=== PATIENT | female | born 1995 | race Hispanic/Latino ===

== ENCOUNTER 2021-09-02 08:10 | Inpatient (IN) | payer SELFPAY ==
[2021-09-02] VITALS (17 sets, daily range): BP systolic 89–119; BP diastolic 58–75; PULSE 86–134; RESP 18; TEMP 36.2–37.1; O2SAT 98; BMI 28.0
[2021-09-02] MEDS: Lactated Ringers 1,000 ML 50 ML IV (08:35)
[2021-09-02 08:57] LABS: Absolute Lymphocyte Count 2.19 X10^3/uL (0.83-4.51); Absolute Neutrophil Count 4.6 X10^3/uL (2.0-7.7); Basophil# 0.03 X10^3/uL; Basophil% 0.4 % (0-1); Eosinophil# 0.12 X10^3/uL; Eosinophils% 1.6 % (0-5); Hematocrit 38.2 % (37-47); Hemoglobin 13.3 g/dL (12.0-15.0); Lymphocyte # 2.19 X10^3/ul (0.83-4.51); Mean Corp Hgb Conc 34.8 g/dL (32-36); Mean Corpuscular Hgb 30.3 pg (27.0-32.0); Mean Platelet Vol. 10.4 fl (6.2-12.0); Monocyte# 0.61 X10^3/uL; Monocyte% 8.1 % (0-10); NRBC Flagged by Analyzer 0 % (0-5); Neutrophil # 4.55 X10^3/uL (2.7-7.7); Neutrophil % 60.2 % (47-70); Platelet Count 227 K/mm3 (150-450); RBC Distribution Width CV 13.5 % (11.6-14.6); RBC Distribution Width SD 42.9 fl (35.1-43.9); Red Blood Count 4.39 M/mm3 (4.2-5.4); White Blood Count 7.6 K/mm3 (4.4-11.0)
[2021-09-02] MEDS: Oxytocin 30 units/NS 500 ml 30 UNITS/500 ML IV.SOLN IV (10:22)
--- NOTE | 2021-09-02 12:59 | HP.PCM.OB_ITS ---
HPI - General General Date of Admission: 09/02/21 HPI Narrative KAT KOTHARI, is a 26 F at 38.6 weeks gestation who presents to triage with loss of fluid. Patient reports gush of fluid this morning. Positive movement. Having occasional contractions. complicated by late care and language barrier. Interpretation services needed. Patient desires unmedicated labor and delivery. Maternal Data Information LUTHER Calculator Estimated Delivery Date Method Current WG Current Estimate 09/10/21 Manual 38w 6d PFSH PFSH Home Medications 1 tab PO/SL DAILY 09/02/21 [History Last Taken 09/01/21 21:00] Allergy/AdvReac Type Severity Reaction Status Date / Time No Known Allergies Allergy Verified 09/02/21 08:44 Social History Smoking Status: Never smoker History Elective abortions Hx Para 2 Spontaneous abortions Hx # Term Pregnancies Ectopic pregnancies Hx # Pregnancies Multiple births # of living children ROS Eyes Eyes: Denies blurry vision, change in vision or spots in vision ENT HEENT: Denies dizziness or headache(s) Cardiovascular Cardiovascular: Denies abdominal pain, chest pain or dyspnea Respiratory/Chest Respiratory/Chest: Denies cough, dyspnea, shortness of breath at rest or shortness of breath with exertion Gastrointestinal Gastrointestinal: Denies abdominal pain, diarrhea or vomiting Genitourinary Genitourinary: Denies change in urinary stream, difficulty urinating or dysuria Musculoskeletal Musculoskeletal: Reports none Integumentary Integumentary: Denies rash Neurologic Neurologic: Denies dizziness, headache(s), memory loss or weakness Psychiatric Psychiatric: Reports none Vital Signs Vital Signs Vital Signs: 09/02/21 11:33 09/02/21 11:34 Temperature 97.6 F L Temperature Source Temporal Pulse Rate 100 Blood Pressure 118/74 BP Systolic 118 BP Diastolic 74 Weight Weight: 158 lb 11.725 oz Body Mass Index (BMI) 28.0 Physical Exam Const alert, oriented x3 and no apparent distress General Appearance: cooperative Orientation / Consciousness: awake Exam Limitations: no limitations HEENT normocephalic Head and Scalp: normal to inspection Eyes General Eye: normal appearance of both eyes Neck full ROM and no lymphadenopathy Lymph Lymphatic: no lymphadenopathy noted Chest inspection of chest normal Resp normal respiratory effort, normal air movement and clear to auscultation bilaterally Effort and Inspection: able to speak in complete sentences and symmetric chest movement Cardio regular rate and regular rhythm GI normal to inspection, nondistended, normoactive bowel sounds Manual OB Exam: presentation cephalic, dilated 4, effaced 80 and station 0 Amniotic Fluid: clear amniotic fluid Back/Spine normal ROM Extremity full ROM and no calf tenderness Skin no rashes or lesions noted General Skin Exam: no breakdown Neuro oriented x3 and CN's II-XII intact bilaterally Psych mental status grossly normal and thought process normal Labs Labs Labs: Blood Type O POSITIVE Antibody Screen NEGATIVE Hct 38.2 % (37-47) Hgb 13.3 g/dL (12.0-15.0) Rubella- immune HB- neg HC- neg RPR- NR HIV- NR GBS- negative Assessment & Plan (1) 38 weeks gestation of : (2) Spontaneous rupture of amniotic membranes: (3) Late care affecting : QUALIFIERS: Trimester: second trimester Qualified Code(s): O09.32 - Supervision of with insufficient care, second trimester (4) Non-Cambodian speaking patient: PLAN: ROM plus- positive Admit to labor and delivery Routine labs Start IV and run fluids per orders Pain medication if indicated Cat. 1 tracing GBS negative Anticipate Dr. Vargas notified and is collaborating physician
[2021-09-02] MEDS: Oxytocin 30 units/NS 500 ml 30 UNITS/500 ML IV.SOLN 334 UNITS IV (13:50)
--- NOTE | 2021-09-02 14:01 | EX.PCM.OBRPT ---
Assessment & Plan (1) (spontaneous vaginal delivery): (2) Non-Serbian speaking patient: Maternal Data Information LUTHER Calculator Estimated Delivery Date Method Current WG Current Estimate 09/10/21 Manual 38w 6d Vaginal Delivery Maternal Presentation Maternal Presentation: Spontaneous Rupture of Membranes Maternal Presentation: Patient is a at 38.6 weeks gestation that presents for spontaneous rupture of membranes for clear fluid this morning at 0700. Operative Information Date of Procedure: 09/02/21 Pre-Operative Diagnosis: Spontaneous rupture of membranes, Term gestation Post-Operative Diagnosis: , live female infant Surgery / Procedure Performed: Spontaneous Vaginal Delivery Type of Anesthesia: None Estimated Blood Loss: 150 Time of Delivery: 13:43 Findings Description of Procedure: Patient complete dilation at 1340. This provider arrived to patient room at 1347. of viable female with initial push. CAN x 1 loose and easily reduced. 3 vessel cord clamped and cut. placed skin to skin with patient. IV pitocin started for active management of the third stage of labor. Placenta delivered spontaneously and intact. After inspection it was noted intact vagina and perineum. Vaginal sweep completed by me. Patient and infant bonding well at this time. EBL [address] cc. APGARS 8/9. Dr. Vargas notified of delivery. Presentation: Vertex Amniotic Membrane Rupture Type: Spontaneous Time of Membrane Rupture: 0700 Amniotic Fluid Description: Clear Cord Vessel Description: 3 Vessels Cord Entanglement: Around neck x 1, loose Nuchal Cord Compression: Without compression Infant A Gender: Female (1 minute): 8 (5 minute): 9 Delayed Cord Clamping: No Post Vaginal Delivery Medications Given After Delivery: IV Pitocin Episiotomy Description: None Laceration: None Complication Complications: None
[2021-09-02] MEDS: Acetaminophen 500 MG Tablet 1000 MG PO (20:37)
[2021-09-03] VITALS (7 sets, daily range): BP systolic 97–110; BP diastolic 57–69; PULSE 84–90; RESP 16–18; TEMP 36.2–37; O2SAT 97–98
[2021-09-03] MEDS: Acetaminophen 500 MG Tablet 1000 MG PO (02:10)
--- NOTE | 2021-09-03 07:08 | PN.OBGYN_ITS ---
Subjective Subjective Patient seen at bedside. Pain controlled. Ambulating and voiding without difficulty. without support. Lochia minimal. Patient desires discharge home today but infant needs to stay due to elevated bilirubin level. Anticipate discharge tomorrow. Objective Data Objective Data Vital Signs: Vital Signs Temp Pulse Resp BP Pulse Ox 98.6 F 90 16 110/68 98 09/03/21 04:05 09/03/21 04:05 09/03/21 04:05 09/03/21 04:05 09/03/21 04:05 Oxygen Delivery Method Room Air Weight: 158 lb 11.725 oz Body Mass Index (BMI) 28.0 Intake & Output: Intake and Output for Last 24 Hours 09/01/21 09/02/21 09/03/21 23:59 23:59 23:59 Intake Total 1282.00 / 1282.00 Output Total 900 / 900 Balance 382.00 / 382.00 Lab / Micro Data Result Diagrams: 09/02/21 08:35 Labs: Laboratory Results - last 24 hr 09/02/21 08:35: WBC 7.6, RBC 4.39, Hgb 13.3, Hct 38.2, MCV 87.0, MCH 30.3, MCHC 34.8, RDW Std Deviation 42.9, RDW Coeff of Rosie 13.5, Plt Count 227, MPV 10.4, Immature Gran % (Auto) 0.700, Neut % (Auto) 60.2, Lymph % (Auto) 29.0, [place] % (Auto) 8.1, Eos % (Auto) 1.6, Baso % (Auto) 0.4, Absolute Neuts (auto) 4.6, Absolute Lymphs (auto) 2.19, Nucleated RBC % 0 09/02/21 08:35: Blood Type O POSITIVE, Antibody Screen NEGATIVE Micro: Microbiology 09/02/21 08:40 Nasal Secretion SARS-CoV-2 Antigen (Rapid) - Final ROS Eyes Eyes: Denies blurry vision, change in vision or spots in vision ENT HEENT: Denies dizziness or headache(s) Cardiovascular Cardiovascular: Denies abdominal pain, chest pain or dyspnea Respiratory/Chest Respiratory/Chest: Denies cough, dyspnea, shortness of breath at rest or shortness of breath with exertion Gastrointestinal Gastrointestinal: Denies abdominal pain, diarrhea or vomiting Genitourinary Genitourinary: Denies change in urinary stream, difficulty urinating or dysuria Musculoskeletal Musculoskeletal: Reports none Integumentary Integumentary: Denies rash Neurologic Neurologic: Denies dizziness, headache(s), memory loss or weakness Physical Exam Const alert and no apparent distress General Appearance: cooperative and comfortable Exam Limitations: no limitations HEENT normocephalic Eyes General Eye: normal appearance of both eyes Neck full ROM General: normal visual inspection Chest Chest: symmetrical chest wall rise Resp normal respiratory effort and normal air movement Effort and Inspection: symmetric chest movement Auscultation: clear to auscultation bilaterally Cardio regular rate and regular rhythm GI normal to inspection, nondistended, normoactive bowel sounds Back/Spine normal ROM Extremity full ROM and no calf tenderness General Extremity: normal exam except as noted Skin no rashes or lesions noted Neuro CN's II-XII intact bilaterally Psych mental status grossly normal Assessment & Plan (1) (spontaneous vaginal delivery): (2) Non-Guatemalan speaking patient: (3) Care and examination of lactating mother: PLAN: PP #1 Routine care support Anticipate discharge home tomorrow
[2021-09-04] VITALS (10 sets, daily range): BP systolic 100–122; BP diastolic 58–73; PULSE 82–102; RESP 16; TEMP 36.6–36.9; O2SAT 97–98
--- NOTE | 2021-09-04 09:49 | NURSING ---
Manager Technical Training used to order breakfast this am, breastfeed , and obtain assessment on pt. Pt appears to understand information with translation. No further needs noted at this time.
[2021-09-04] MEDS: Acetaminophen 500 MG Tablet 1000 MG PO (09:52)
--- NOTE | 2021-09-04 13:16 | PCM.PN.OB ---
Subjective Subjective pt doing well. pain well controlled. lochia normal. without complaints. denies CP, SOB, leg pain. Objective Data Objective Data Vital Signs: Vital Signs Temp Pulse Resp BP Pulse Ox 98.4 F 91 16 107/63 98 09/04/21 09:00 09/04/21 09:25 09/04/21 09:00 09/04/21 09:24 09/04/21 09:25 Oxygen Delivery Method Room Air Weight: 158 lb 11.725 oz Body Mass Index (BMI) 28.0 Intake & Output: Intake and Output for Last 24 Hours 09/02/21 09/03/21 09/04/21 23:59 23:59 23:59 Intake Total 1282.00 / 1282.00 Output Total 900 / 900 Balance 382.00 / 382.00 Lab / Micro Data Result Diagrams: 09/02/21 08:35 Micro: Microbiology 09/02/21 08:40 Nasal Secretion SARS-CoV-2 Antigen (Rapid) - Final Assessment & Plan (1) (spontaneous vaginal delivery): PLAN: Pt seen at bedside with record label intern. She is doing well . Discharge instructions reviewed and to be discharged today. Possibly to hotel status. (2) Non-Irish speaking patient: (3) Care and examination of lactating mother:
--- NOTE | 2021-09-04 13:19 | PCM.DC ---
Discharge Instructions Diet Discharge Diet: No restrictions Activity Discharge Activity: May Drive and May Shower May resume sexual activity in: 6 weeks Ice area for (Minutes): 15 Weight Bearing Status: Weight bearing as tolerated Lifting Restrictions: nothing heavier than baby Dressing / Incision Call your doctor if you observe: Fever of 101 or Higher, Coldness, Increased Pain, Numbness or Tingling, Change in Color, Inability to urinate, Inability to have a bowel movement, Using more than 1 pad per hour, Shortness of breath, Dizziness, Fainting spells, Swelling in the ankles, Chest pain, Increased palpitations (irregular heartbeat), Calf discomfort and Uncontrolled pain Follow Up Care When: 1-2 week visit 6 week visit Test Results: Test results from this visit will be discussed in further detail at your follow-up appointment, if applicable. Discharge Plan Admission Admit Date/Time: 09/02/21 08:10 Primary Reason for Your Visit: delivery Attending Provider: Dedra Ayala Discharge Orders/Prescriptions Prescriptions: New ibuprofen 600 mg tablet 600 mg PO Q6H PRN (Reason: pain) Qty: 30 RF: 0 Continued 1 tab PO/SL DAILY RF: 0 Disposition Disposition (needs filled in before D/C Order can be placed): Home, Self Care
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
[2021-09-04] MEDS: Naproxen 500 MG Tablet PO (22:48)
== END 2021-09-04 23:00 | disposition home or self-care (01) | DRG 807 ==
PROVIDERS: Admitting Provider Advanced Practice Midwife; Visit Provider Advanced Practice Midwife
DX: O42.02 Full-term premature rupture of membranes, onset of labor within 24 hours of rupture (principal); Z37.0 Single live birth; O69.81X0 Labor and delivery complicated by cord around neck, without compression, not applicable or unspecified; Z3A.38 38 weeks gestation of pregnancy
CPT/HCPCS: 59025; 59050; 85025; 86850; 86900; 86901; 87811; 99218; J7120; G0378